=== PATIENT | female | born 1985 | race African-American/Black ===

== ENCOUNTER 2024-01-07 18:35 | Emergency (ER) | payer OTHER ==
[~2024-01-07] VITALS: Ht 167.6 cm; Wt 80.0 kg
[2024-01-07 18:39] VITALS: BP 138/87; PULSE 104; RESP 18; TEMP 98.6; O2SAT 98
[2024-01-07] MEDS: ACETAMINOPHEN 325MG TABLET PO ONE (20:05)
[2024-01-07] MEDS ORDERED: NAPR-1176 MT (22:07)
[2024-01-07] MEDS ORDERED: HYDR-4001 MT (22:07)
[2024-01-07] MEDS ORDERED: LIDO700A15 TP (22:07)
== END 2024-01-07 23:17 | disposition home or self-care (01) ==
LOC: ER 18:35
DX: S82.201A Unspecified fracture of shaft of right tibia, initial encounter for closed fracture (principal); J45.909 Unspecified asthma, uncomplicated; V49.49XA Driver injured in collision with other motor vehicles in traffic accident, initial encounter; Y93.89 Activity, other specified; Y92.89 Other specified places as the place of occurrence of the external cause; Y99.8 Other external cause status
CPT/HCPCS: 73562; 73700; 99284; Z7610